=== PATIENT | female | born 1980 | race Hispanic/Latino ===

== ENCOUNTER 2021-01-02 17:18 | Emergency (ER) | payer BC, SELFPAY ==
--- NOTE | 2021-01-02 17:30 | EDPHYS ---
Physician Documentation [facility] Name: Jazzy Kaba Age: 40 yrs Sex: Female : 1980 Arrival Date: 01/02/2021 Time: 17:22 Bed Waiting Private MD: ED Physician Iain Mcekon HPI: 01/02 17:33 This 40 yrs old Female presents to ER via Ambulatory with complaints of Insect kb Bite. 17:33 The patient was bitten on the left leg and left foot and right foot, by insect, at kb home. Onset: The symptoms/episode began/occurred 2 day(s) ago. Animal information: Patient/Caregiver unable to provide information related to the animal. Secondary to the bite the patient reports pain, multiple puncture wounds, that are superficial, pinpoint. Associated signs and symptoms: Pertinent positives: pain at site, tenderness, Pertinent negatives: bony tenderness, erythema at site, fever, fluctuance, loss of consciousness, motor deficit, numbness distal to wound, suspected foreign body, swelling at site. Severity of symptoms: At their worst the symptoms were very mild, in the emergency department the symptoms are unchanged. The patient has not experienced similar symptoms in the past. The patient has not recently seen a physician. Patient reports insect bites to bilateral feet and lower left leg that started 2 days ago. States she did not see the insect that bit her, but the bites are tender to palpation. States she has looked online and was concerned because of the results so she wanted to come in to get them looked at to make sure they were not a brown recluse or something similar.. Historical: - Allergies: 17:27 PENICILLINS; ll1 - PMHx: 17:27 None; ll1 - PSHx: 17:27 tubes tied and reversal; ll1 - Immunization history:: Flu vaccine is not up to date. - Social history:: Smoking status: Patient reports the use of cigarette tobacco products, denies chronic smoking, but will smoke occasionally. ROS: 17:31 Constitutional: Negative for fever, chills, and weight loss. kb 17:31 Skin: Positive for of the right foot, left foot and left leg, insect bites. 17:31 All other systems are negative. Exam: 17:32 Constitutional: This is a well developed, well nourished patient who is awake, alert, kb and in no acute distress. Head/Face: Normocephalic, atraumatic. ENT: Moist Mucous membranes Respiratory: Respirations even and unlabored. No increased work of breathing, no retractions or nasal flaring. MS/ Extremity: Pulses equal, no cyanosis. Neurovascular intact. Full, normal range of motion. Neuro: Awake and alert, GCS 15, oriented to person, place, time, and situation. Moves all extremities. Normal gait. Psych: Awake, alert, with orientation to person, place and time. Behavior, mood, and affect are within normal limits. 17:32 Skin: pinpoint insect bites noted to bilateral feet and left lower leg. no redness, swelling, warmth or drainage noted to them. Vital Signs: 17:25 BP 124 / 86; Pulse 84; Resp 17; Temp 98.7; Pulse Ox 100% ; Weight 74.84 kg; Height 5 ll1 ft. 3 in. (160.02 cm); Pain 7/10; 17:25 Body Mass Index 29.23 (74.84 kg, 160.02 cm) ll1 MDM: 17:30 Patient medically screened. kb 17:31 Data reviewed: vital signs, nurses notes. Data interpreted: Pulse oximetry: on room air kb is 100 %. Interpretation: normal. Counseling: I had a detailed discussion with the patient and/or guardian regarding: the historical points, exam findings, and any diagnostic results supporting the discharge/admit diagnosis, the need for outpatient follow up, a family practitioner, to return to the emergency department if symptoms worsen or persist or if there are any questions or concerns that arise at home. Administered Medications: No medications were administered Disposition: 18:12 Co-signature as Attending Physician, Iain Mckeon MD. rn Disposition Summary: 01/02/21 17:30 Discharge Ordered Location: Home kb Condition: Stable kb Diagnosis - Insect bite (nonvenomous) of foot kb - Insect bite (nonvenomous) of lower leg kb Followup: kb - With: Emergency Department - When: As needed - Reason: Worsening of condition Followup: kb - With: Private Physician - When: 2 - 3 days - Reason: Recheck today's complaints, Continuance of care, Re-evaluation by your physician Discharge Instructions: - Discharge Summary Sheet kb - Insect Bite, Adult, [id number] kb Forms: - Medication Reconciliation Form kb - Thank You Letter kb - Antibiotic Education kb - Prescription Opioid Use kb Prescriptions: - mupirocin 2 % Topical ointment - apply 1 application by TOPICAL route 3 times per day; 1 tube; Refills: 0, kb Product Selection Permitted Signatures: Josie Ny, LUIS-C CHIROPRACTIC PRACTICE MANAGER-Iain Garrett MD MD rn Anne Puckett RN RN ll1
--- NOTE | 2021-01-02 17:30 | ER ---
Nurse's Notes [facility] Name: Jazzy Kaba Age: 40 yrs Sex: Female : 1980 Arrival Date: 01/02/2021 Time: 17:22 Bed Waiting Private MD: Diagnosis: Insect bite (nonvenomous) of foot;Insect bite (nonvenomous) of lower leg Presentation: 01/02 17:25 Chief complaint: Patient states: Possible insect bites to bottom of L foot for 2 days. ll1 Small sites up both legs. + tender. No redness or swelling. No fever. Coronavirus screen: Client denies travel out of the [place] in the last 14 days. At this time, the client does not indicate any symptoms associated with coronavirus-19. Ebola Screen: Patient denies travel to an Ebola-affected area in the 21 days before illness onset. Initial Sepsis Screen: Does the patient meet any 2 criteria? No. Patient's initial sepsis screen is negative. Does the patient have a suspected source of infection?. Risk Assessment: Do you want to hurt yourself or someone else? Patient reports no desire to harm self or others. Onset of symptoms was January 01, 2021. 17:25 Method Of Arrival: Ambulatory ll1 17:25 Acuity: KIRSTEN 4 ll1 Triage Assessment: 17:39 Bite description: bite sustained to left foot. General: Appears in no apparent ll1 distress. Behavior is calm, cooperative, appropriate for age. 17:40 Bite description: by an unknown animal, animal information: vaccination(s) is unknown. ll1 Pain: Complains of pain in left foot Quality of pain is described as aching. Derm: Reports small bites to bottom of L foot and up L leg. Historical: - Allergies: 17:27 PENICILLINS; ll1 - PMHx: 17:27 None; ll1 - PSHx: 17:27 tubes tied and reversal; ll1 - Immunization history:: Flu vaccine is not up to date. - Social history:: Smoking status: Patient reports the use of cigarette tobacco products, denies chronic smoking, but will smoke occasionally. Screenin:38 Abuse screen: Denies threats or abuse. Nutritional screening: No deficits noted. ll1 Tuberculosis screening: No symptoms or risk factors identified. Fall Risk Total Nina Fall Scale indicates No Risk (0-24 pts). Assessment: 17:46 Derm: Skin is intact, Skin is. ll1 Vital Signs: 17:25 BP 124 / 86; Pulse 84; Resp 17; Temp 98.7; Pulse Ox 100% ; Weight 74.84 kg; Height 5 ll1 ft. 3 in. (160.02 cm); Pain 7/10; 17:25 Body Mass Index 29.23 (74.84 kg, 160.02 cm) ll1 ED Course: 17:22 Patient arrived in ED. mr 17:27 Triage completed. ll1 17:28 Arm band placed on. ll1 17:29 Josie Ny FNP-C [facility]. kb 17:29 Iain Mckeon MD is Attending Physician. kb 17:40 No provider procedures requiring assistance completed. Patient did not have IV access ll1 during this emergency room visit. 17:46 Patient has correct armband on for positive identification. Bed in low position. Call ll1 light in reach. Cardiac monitoring not applicable on this patient. Administered Medications: No medications were administered Outcome: 17:30 Discharge ordered by . kb 17:43 Patient left the ED. ll1 17:46 Discharged to home ambulatory. ll1 17:46 Condition: stable 17:46 Discharge instructions given to patient, Instructed on discharge instructions, follow up and referral plans. medication usage, Demonstrated understanding of instructions, follow-up care, medications, Prescriptions given X 1. Signatures: Josie Ny FNP-C FNP-Ckb Rivera, Mary Anne Puckett, RN RN ll1
[2021-01-02 17:51] VITALS: BP 124/86; TEMP 98.7; O2SAT 100
== END 2021-01-02 17:43 | disposition home or self-care (01) ==
LOC: ER 17:18
DX: S90.862A Insect bite (nonvenomous), left foot, initial encounter (principal); S90.861A Insect bite (nonvenomous), right foot, initial encounter; S80.862A Insect bite (nonvenomous), left lower leg, initial encounter; F17.210 Nicotine dependence, cigarettes, uncomplicated; Z88.0 Allergy status to penicillin
CPT/HCPCS: 99282

== ENCOUNTER 2021-12-28 11:35 | Emergency (ER) | payer SELFPAY ==
[2021-12-28] MEDS ORDERED: NA CHLORIDE 0.9% 1,000 ML ONE (12:59)
[2021-12-28 13:31] LABS: Urine Blood 3+ (Negative); Urine Glucose Negative (Negative); Urine Protein 2+ (Negative); Urine Specific Gravity >=1.030 (1.005-1.030)
--- NOTE | 2021-12-28 14:59 | RAD REPORT ---
EXAM DESCRIPTION: US - Transvaginal OB - 12/28/2021 2:34 pm CLINICAL HISTORY: ABD CRAMPING, COMPARISON: Transvaginal OB dated 12/21/2021 FINDINGS: The endometrium is thickened to 10-11 mm. Again noted is a small cystic area 5 little mulligan ge since the comparative study approximately a week ago. Knee would seem doubtful that this represent s a normal developing IUP at this stage, however follow-up would be advised. The maternal adnexa and ovaries are within normal limits. Normal Doppler blood flow was demonstrated to both ovaries. IMPRESSION: Thickened endometrium with small cystic structure in the endometrium again noted with li ttle change since the exam performed a week ago. Bowel there is potential of this represents an IUP t hat is very early, is somewhat doubtful given lack of mold changer time. Recommend serial quantitative HCG levels and follow-up pelvic sonography in 7 days.
[2021-12-28 15:34] LABS: Absolute Lymphocytes (CBC) 1.6 K/uL (0.7-4.9); Hematocrit 41.5 % (36.0-45.0); Lymphocytes % 18.5 % (15.3-44.8); MCV 86.1 fL (80-100); MPV 9.9 fL (7.6-11.3); RBC Red Blood Cell Count 4.82 M/uL (3.86-4.86)
[2021-12-28 16:10] LABS: Potassium 3.8 mmol/L (3.5-5.1)
--- NOTE | 2021-12-28 16:37 | ER ---
Nurse's Notes [facility] Name: Jazzy Kaba Age: 41 yrs Sex: Female : 1980 Arrival Date: 12/28/2021 Time: 11:36 Bed 5 Private MD: Diagnosis: Threatened ;Missed Presentation: 12/28 12:19 Chief complaint: Patient states: is approx 5 weeks , is due to see OB in iw January, went to bathroom today and there was blood and there were spots of blood when she wiped , is also having mild cramping. Chief complaint: Patient states: had a positive test at PCP office , had an US done here because she had tubal reversal last year, the US looked good. Coronavirus screen: At this time, the client does not indicate any symptoms associated with coronavirus-19. Ebola Screen: Patient negative for fever greater than or equal to 101.5 degrees Fahrenheit, and additional compatible Ebola Virus Disease symptoms Patient denies exposure to infectious person. Patient denies travel to an Ebola-affected area in the 21 days before illness onset. No symptoms or risks identified at this time. Initial Sepsis Screen: Does the patient meet any 2 criteria? No. Patient's initial sepsis screen is negative. Does the patient have a suspected source of infection? No. Patient's initial sepsis screen is negative. Risk Assessment: Do you want to hurt yourself or someone else? Patient reports no desire to harm self or others. Onset of symptoms was December 28, 2021. 12:19 Method Of Arrival: Ambulatory iw 12:19 Acuity: KIRSTEN 3 iw PARA EDUCATOR: 12:23 7, 2, Living 4, LMP 11/18/2021 iw 14:40 6, Full Term 4, Premature 0, 1, Living 4 joy Historical: - Allergies: 12:22 PENICILLINS; iw - Home Meds: 12:22 Folic Acid Oral [Active]; prenantal [Active]; iw - PSHx: 12:22 tubes tied and reversal; iw - Social history:: Smoking status: unknown. Screenin:46 Abuse screen: Denies threats or abuse. Nutritional screening: No deficits noted. vg1 Tuberculosis screening: No symptoms or risk factors identified. Fall Risk No fall in past 12 months (0 pts). No secondary diagnosis (0 pts). IV access (20 points). Ambulatory Aid- None/Bed Rest/Nurse Assist (0 pts). Gait- Normal/Bed Rest/Wheelchair (0 pts) Mental Status- Oriented to own ability (0 pts). Total Nina Fall Scale indicates No Risk (0-24 pts). Assessment: 12:46 General: Appears in no apparent distress. comfortable, Behavior is calm, cooperative. vg1 Pain: Complains of pain in suprapubic area, right inguinal area and left inguinal area Pain currently is 2 out of 10 on a pain scale. Quality of pain is described as crampy, Pain began this morning. Neuro: Level of Consciousness is awake, alert, obeys commands, Oriented to person, place, time, situation. Cardiovascular: Patient's skin is warm and dry. Respiratory: Airway is patent Respiratory effort is even, unlabored. GI: Abdomen is flat, Patient currently denies nausea, vomiting. : Urine is blood tinged, Denies burning with urination, pain with urination. EENT: No signs and/or symptoms were reported regarding the EENT system. Derm: Skin is intact, is healthy with good turgor. Musculoskeletal: Circulation, motion, and sensation intact. 14:00 Reassessment: Patient and/or family updated on plan of care and expected duration. Pain jh6 level reassessed. multiple attempts at IV unsuccessful by nursing staff. Provider attempted twice in EJ and now attempting us iv. 15:04 Reassessment: Patient appears in no apparent distress at this time. No changes from vg1 previously documented assessment. Patient and/or family updated on plan of care and expected duration. Pain level reassessed. Patient is alert, oriented x 3, equal unlabored respirations, skin warm/dry/pink. 16:12 Reassessment: Patient appears in no apparent distress at this time. No changes from vg1 previously documented assessment. Patient and/or family updated on plan of care and expected duration. Pain level reassessed. Patient is alert, oriented x 3, equal unlabored respirations, skin warm/dry/pink. 17:32 Reassessment: No changes from previously documented assessment. Patient is alert, jh6 oriented x 3, equal unlabored respirations, skin warm/dry/pink. Provider spoke with pt about results and follow up. all lab results printed and given to pt for follow up. Vital Signs: 12:19 BP 118 / 81; Pulse 83; Resp 16; Temp 97.8; Pulse Ox 100% on R/A; iw 15:04 BP 105 / 69; Pulse 76; Resp 16; Pulse Ox 100% on R/A; vg1 15:45 BP 113 / 77; Pulse 90; Resp 16; Pulse Ox 100% on R/A; vg1 ED Course: 11:36 Patient arrived in ED. am2 12:22 Triage completed. iw 12:22 Arm band placed on. iw 12:40 Tres Parekh MD is Attending Physician. joy 12:46 Jewels Huertas, EVER is Primary Nurse. vg1 12:46 Patient has correct armband on for positive identification. Bed in low position. Call vg1 light in reach. Side rails up X 1. 12:50 Missed attempt(s): 22 gauge in right hand. vg1 12:53 Missed attempt(s): 22 gauge in right antecubital area. vg1 12:54 Radiology exam delayed due to test not completed at this time. hr 13:31 Radiology exam delayed due to test not completed at this time. hr 14:30 US Transvaginal Ob In Process Unspecified. EDMS 14:[address]. vg1 15:15 Initial lab(s) drawn, by me, sent to lab. T\T\S collected, blood band applied to patient. dh3 Missed attempt(s): 22 gauge in right forearm. Bleeding controlled, band aid applied, catheter tip intact. 15:28 Inserted saline lock: 24 gauge in left forearm, using aseptic technique. dh3 15:49 Lab(s) recollected, by me, sent to lab. dh3 16:35 Isra Johansen MD is Referral Physician. joy 17:31 No provider procedures requiring assistance completed. IV discontinued, intact, jh6 bleeding controlled, No redness/swelling at site. Pressure dressing applied. Administered Medications: 15:30 Drug: NS 0.9% 1000 ml Route: IV; Rate: 1 bolus; Site: left wrist; vg1 Medication: 12:46 VIS not applicable for this client. vg1 Point of Care Testing: Urine : 13:30 hCG Reading: Positive; Control Reading: Positive; 6 Outcome: 16:36 Discharge ordered by . joy 17:32 Discharged to home ambulatory. jh6 17:32 Condition: stable 17:32 Discharge instructions given to patient, family, Instructed on discharge instructions, follow up and referral plans. Demonstrated understanding of instructions, follow-up care. 17:38 Patient left the ED. iw Signatures: Dispatcher [employer] EDTres Ann MD MD cha Rod, Haley hr Williams, Irene, EVER RN iw Cherise Campo Karla Patterson [facility] Jewels Huertas, RN RN vg1 Lise Sanchez RN RN jh6
--- NOTE | 2021-12-28 16:37 | EDPHYS ---
Physician Documentation [facility] Name: Jazzy Kaba Age: 41 yrs Sex: Female : 1980 Arrival Date: 12/28/2021 Time: 11:36 Bed 5 Private MD: ED Physician Tres Parekh HPI: 12/28 14:40 This 41 yrs old Female presents to ER via Ambulatory with complaints of joy Vaginal Bleeding, + Preg <12wks, Abdominal Cramping. 14:40 The patient presents to the emergency department with vaginal bleeding, that is light. joy The estimated gestational age is 6 weeks. course: care: private OB physician. Previous pregnancies: in previous pregnancies patient has had vaginal delivery. Associated signs and symptoms: Pertinent positives: vaginal bleeding. DIRECT MARKETING COORDINATOR: 12:23 7, 2, Living 4, LMP 11/18/2021 iw 14:40 6, Full Term 4, Premature 0, 1, Living 4 joy Historical: - Allergies: 12:22 PENICILLINS; iw - Home Meds: 12:22 Folic Acid Oral [Active]; prenantal [Active]; iw - PSHx: 12:22 tubes tied and reversal; iw - Social history:: Smoking status: unknown. ROS: 14:53 Constitutional: Negative for fever, chills, and weight loss, Eyes: Negative for injury, joy pain, redness, and discharge, ENT: Negative for injury, pain, and discharge, Neck: Negative for injury, pain, and swelling, Cardiovascular: Negative for chest pain, palpitations, and edema, Respiratory: Negative for shortness of breath, cough, wheezing, and pleuritic chest pain, Abdomen/GI: Negative for abdominal pain, nausea, vomiting, diarrhea, and constipation, Back: Negative for injury and pain, MS/Extremity: Negative for injury and deformity, Skin: Negative for injury, rash, and discoloration, Neuro: Negative for headache, weakness, numbness, tingling, and seizure, Psych: Negative for depression, anxiety, suicide ideation, homicidal ideation, and hallucinations, Allergy/Immunology: Negative for hives, rash, and allergies, Endocrine: Negative for neck swelling, polydipsia, polyuria, polyphagia, and marked weight changes, Hematologic/Lymphatic: Negative for swollen nodes, abnormal bleeding, and unusual bruising. 14:53 : Positive for vaginal bleeding. Exam: 14:53 Constitutional: This is a well developed, well nourished patient who is awake, alert, joy and in no acute distress. Head/Face: Normocephalic, atraumatic. Eyes: Pupils equal round and reactive to light, extra-ocular motions intact. Lids and lashes normal. Conjunctiva and sclera are non-icteric and not injected. Cornea within normal limits. Periorbital areas with no swelling, redness, or edema. ENT: Nares patent. No nasal discharge, no septal abnormalities noted. Tympanic membranes are normal and external auditory canals are clear. Oropharynx with no redness, swelling, or masses, exudates, or evidence of obstruction, uvula midline. Mucous membranes moist. Neck: Trachea midline, no thyromegaly or masses palpated, and no cervical lymphadenopathy. Supple, full range of motion without nuchal rigidity, or vertebral point tenderness. No Meningismus. Chest/axilla: Normal chest wall appearance and motion. Nontender with no deformity. No lesions are appreciated. Cardiovascular: Regular rate and rhythm with a normal S1 and S2. No gallops, murmurs, or rubs. Normal PMI, no JVD. No pulse deficits. Respiratory: Lungs have equal breath sounds bilaterally, clear to auscultation and percussion. No rales, rhonchi or wheezes noted. No increased work of breathing, no retractions or nasal flaring. Abdomen/GI: Soft, non-tender, with normal bowel sounds. No distension or tympany. No guarding or rebound. No evidence of tenderness throughout. Back: No spinal tenderness. No costovertebral tenderness. Full range of motion. Skin: Warm, dry with normal turgor. Normal color with no rashes, no lesions, and no evidence of cellulitis. MS/ Extremity: Pulses equal, no cyanosis. Neurovascular intact. Full, normal range of motion. Neuro: Awake and alert, GCS 15, oriented to person, place, time, and situation. Cranial nerves II-XII grossly intact. Motor strength 5/5 in all extremities. Sensory grossly intact. Cerebellar exam normal. Normal gait. Psych: Awake, alert, with orientation to person, place and time. Behavior, mood, and affect are within normal limits. Vital Signs: 12:19 BP 118 / 81; Pulse 83; Resp 16; Temp 97.8; Pulse Ox 100% on R/A; iw 15:04 BP 105 / 69; Pulse 76; Resp 16; Pulse Ox 100% on R/A; vg1 15:45 BP 113 / 77; Pulse 90; Resp 16; Pulse Ox 100% on R/A; vg1 MDM: 12:40 Patient medically screened. joy 14:54 Differential diagnosis: dysmenorrhea. Data reviewed: vital signs, nurses notes, lab joy test result(s), radiologic studies, ultrasound. Data interpreted: environmental monitoring specialist: rate is 83 beats/min, rhythm is regular, Pulse oximetry: on room air. Counseling: I had a detailed discussion with the patient and/or guardian regarding: the historical points, exam findings, and any diagnostic results supporting the discharge/admit diagnosis, lab results, radiology results. 12/28 12:25 Order name: Abo/rh Typing; Complete Time: 16:47 12/28 12:25 Order name: Basic Metabolic Panel; Complete Time: 16:15 12/28 12:25 Order name: CBC with Diff; Complete Time: 16:01 12/28 12:25 Order name: Quantitative Hcg; Complete Time: 16:15 12/28 13:31 Order name: Urine Dipstick-Ancillary; Complete Time: 15:27 EDIN 12/28 12:25 Order name: IV Saline Lock; Complete Time: 15:35 12/28 12:25 Order name: Labs collected and sent; Complete Time: 15:35 12/28 12:25 Order name: NPO; Complete Time: 12:49 12/28 12:25 Order name: Urine Dipstick-Ancillary (obtain specimen); Complete Time: 15:35 12/28 12:25 Order name: Urine Test (obtain specimen); Complete Time: 15:35 12/28 12:40 Order name: US Transvaginal Ob; Complete Time: 15:27 [facility] 12/28 15:34 Order name: Labs - recollect needed: recollect abo/rh,c7. reband pt; Complete Time: bd 16:01 Administered Medications: 15:30 Drug: NS 0.9% 1000 ml Route: IV; Rate: 1 bolus; Site: left wrist; vg1 Point of Care Testing: Urine : 13:30 hCG Reading: Positive; Control Reading: Positive; jh6 Disposition Summary: 12/28/21 16:36 Discharge Ordered Location: Home joy Problem: new joy Symptoms: have improved joy Condition: Stable joy Diagnosis - Threatened joy - Missed joy Followup: joy - With: Private Physician - When: 2 - 3 days - Reason: Recheck today's complaints, Continuance of care, Re-evaluation by your physician Followup: joy - With: Isra Johansen MD - When: 2 - 3 days - Reason: Recheck today's complaints, Re-evaluation by your physician Discharge Instructions: - Discharge Summary Sheet joy - Threatened Miscarriage joy - Vaginal Bleeding During , First Trimester joy - Threatened Miscarriage, [id number] joy - Miscarriage, [id number] joy - Vaginal Bleeding During , First Trimester, [id number] joy Forms: - Medication Reconciliation Form joy - Thank You Letter joy - Antibiotic Education joy - Prescription Opioid Use joy Signatures: Dispatcher [employer] EDMS Radha Gomez Corey, MD MD cha Williams, Irene RN Jewels Richard, RN RN vg1 Lise Sanchez RN RN jh6
[2021-12-28 19:28] VITALS: TEMP 97.8; O2SAT 100
[2021-12-28 19:36] VITALS: BP 113/77
== END 2021-12-28 17:38 | disposition home or self-care (01) ==
LOC: ER 11:35
DX: O20.0 Threatened abortion (principal); N93.8 Other specified abnormal uterine and vaginal bleeding; R10.84 Generalized abdominal pain; Z88.0 Allergy status to penicillin
CPT/HCPCS: 36415; 76817; 80048; 81003; 84702; 85025; 86900; 86901; 99284; J7030